=== PATIENT | male | born 1975 ===

== ENCOUNTER → 2019-09-06 12:29 | Outpatient (REF) | payer SELFPAY ==
[2019-09-13 13:52] LABS: Internal QC Validated? YES +Cl - CLEAR BKGD; Monotest POSITIVE (Negative)
[2019-09-13 13:53] LABS: Internal QC Validated? YES +Cl - CLEAR BKGD; Monotest Negative (Negative)
[2019-09-13 13:54] LABS: Internal QC Validated? YES +Cl - CLEAR BKGD; Monotest POSITIVE (Negative)
[2019-09-15 11:19] LABS: Internal QC Validated? YES +Cl - CLEAR BKGD; Monotest Negative (Negative); Monotest POSITIVE (Negative)
== END ==
LOC: LABSURVEY 12:29
PROVIDERS: Visit Provider Pathology Anatomic Pathology & Clinical Pathology
DX: Z00.00 Encounter for general adult medical examination without abnormal findings (principal)